=== PATIENT | male | born 1975 | race Caucasian/White ===

== ENCOUNTER 2017-01-19 20:14 | Emergency (ER) | payer OTHER ==
[~2017-01-19] VITALS: Ht 177.8 cm; Wt 95.0 kg
[2017-01-19] MEDS ORDERED: THIAMINE 100MG TABLET ONE (20:50)
[2017-01-19] MEDS ORDERED: ONDANSETRON ODT 4 MG ONE (20:51)
[2017-01-19] MEDS ORDERED: LORazepam 1MG TABLET ONE ×2 (20:51→23:36)
[2017-01-19] MEDS ORDERED: THIAMINE 100MG TABLET PO ONE (21:00)
[2017-01-19] MEDS ORDERED: ONDANSETRON ODT 4 MG PO ONE (21:00)
[2017-01-19] MEDS ORDERED: LORazepam 1MG TABLET PO ONE (21:00)
[2017-01-19 21:02] LABS: HEMATOCRIT 52.1 % (39.2-51.8); HEMOGLOBIN 18.2 g/dL (13.7-18.0); WHITE BLOOD COUNT 7.7 x10^3/uL (3.4-10)
[2017-01-19 21:10] LABS: ASPARTATE AMINO TRANSFERASE 150 U/L (15-37); BLOOD UREA NITROGEN 4 mg/dL (7-18)
[2017-01-19 23:43] VITALS: BP 165/114
[2017-01-20] MEDS ORDERED: LORazepam 1MG TABLET PO ONE
== END 2017-01-20 00:02 | disposition home or self-care (01) ==
LOC: ED 21:54
DX: N50.811 Right testicular pain (principal); F10.239 Alcohol dependence with withdrawal, unspecified
CPT/HCPCS: 36415; 76870; 80053; 81001; 85025; 87086; 93005; 99285; Q0162